=== PATIENT | female | born 2005 | race Caucasian/White ===

== ENCOUNTER 2025-06-29 16:53 | Emergency (ER) | payer OTHER ==
[2025-06-29 16:58] VITALS: BP 116/78; PULSE 86; RESP 20; TEMP 98.2; BMI 22.4
[2025-06-29] MEDS ORDERED: KETOROLAC TROMETHAMINE 30 MG/1 ML VIAL ONE (17:14)
[2025-06-29] MEDS: KETOROLAC TROMETHAMINE 30 MG/1 ML VIAL IM ONE (17:17)
== END 2025-06-29 18:55 | disposition home or self-care (01) ==
LOC: JERFT 16:53
PROC: 3E0233Z Introduction of Anti-inflammatory into Muscle, Percutaneous Approach (ICD-10-PCS; principal; 2025-06-29)
DX: S09.90XA Unspecified injury of head, initial encounter (principal); M54.2 Cervicalgia; W20.8XXA Other cause of strike by thrown, projected or falling object, initial encounter
CPT/HCPCS: 99284-25